=== PATIENT | female | born 1960 | race Caucasian/White ===

== ENCOUNTER 2020-11-29 12:18 | Day surgery (SDC) | payer MEDICAID ==
[~2020-11-29] VITALS: Ht 165.1 cm; Wt 75.0 kg
[~2020-11-29 12:18] MED LIST: BUPR300T53 PO; HYDR50CA9 PO; LANS30TA PO; OXYC500S PO; SODIUM CHLORIDE 0.9% 1,000 ML IV ONE; SODIUM CHLORIDE 0.9% 1,000 ML ONE; TOPI50TA PO
[2020-11-29] MEDS ORDERED: PROPOFOL 1% 20 ML VIAL IVP ONE (12:19)
[2020-11-29] MEDS ORDERED: LIDOCAINE/PF 2% 5 ML VIAL IM ONE (12:19)
[2020-11-29 13:00] LABS: COVID AG,FIA SOURCE NASOPHARYNGEAL
[2020-11-29] MEDS ORDERED: DICL75TA5 PO (13:08)
== END 2020-11-29 17:00 | disposition home or self-care (01) ==
LOC: SURGERY 12:18
PROVIDERS: ATTEND Student in an Organized Health Care Education/Training Program
DX: K63.5 Polyp of colon (principal); K64.8 Other hemorrhoids; D12.3 Benign neoplasm of transverse colon; K29.50 Unspecified chronic gastritis without bleeding; K44.9 Diaphragmatic hernia without obstruction or gangrene; K21.00 Gastro-esophageal reflux disease with esophagitis, without bleeding; K31.89 Other diseases of stomach and duodenum; K63.89 Other specified diseases of intestine; F32.9 Major depressive disorder, single episode, unspecified; K31.4 Gastric diverticulum; Z98.84 Bariatric surgery status; Z90.49 Acquired absence of other specified parts of digestive tract; Z98.890 Other specified postprocedural states
CPT/HCPCS: 45385; 45380; 43239; 87426; 88305; 88312; 88313; C9803; J2704; J3490; J7030